=== PATIENT | male | born 1965 | race Two or more races ===

== ENCOUNTER 2017-09-20 17:58 | Inpatient (IN) | payer SELFPAY ==
[~2017-09-20] VITALS: Ht 167.6 cm; Wt 69.4 kg
[2017-09-20] MEDS: SODIUM CHLORIDE 0.9% 1,000 ML IV SCH
[2017-09-20] MEDS ORDERED: SODIUM CHLORIDE 0.9% 1,000 ML IV ONE (18:19)
[2017-09-20] MEDS ORDERED: ONDANSETRON HCL 4MG/2ML VIAL IV STA ×2 (18:19→19:35)
[2017-09-20 19:03] LABS: BASOPHILS % 0.2 % (0.0-2.0); HEMATOCRIT. 49.2 % (42.0-52.0); HEMOGLOBIN. 17.4 g/dL (14.0-18.0); LYMPHOCYTES % 11.4 % (20.0-50.0); MEAN CORPUSCULAR VOLUME 87.6 fL (80.0-94.0); MEAN PLATELET VOLUME 8.9 fl (7.4-10.4); MONOCYTES % 4.2 % (2.0-8.0); NEUTROPHILS % 84.2 % (40.0-76.0); PLATELET 252 x1000/uL (130-400); RED BLOOD CELL COUNT 5.61 mill/uL (4.7-6.1); RED CELL DISTRIBUTION WIDTH 13.2 % (11.6-14.6)
[2017-09-20 19:06] LABS: CHLORIDE 94 mEq/L (98-107)
[2017-09-20 19:07] LABS: PROTHROMBIN TIME 10.1 sec (9.4-11.6)
[2017-09-20 19:10] LABS: ETHANOL BLOOD 219 mg/dL
[2017-09-20 19:12] LABS: AMMONIA 33 uMol/L (<32)
[2017-09-20 19:21] LABS: CLARITY URINE CLEAR (CLEAR); COLOR URINE YELLOW (YELLOW); KETONES URINE TRACE (NEGATIVE); LEUKOCYTE ESTERASE URINE TRACE (NEGATIVE); NITRITE URINE NEGATIVE (NEGATIVE); OCCULT BLOOD URINE TRACE (NEGATIVE); PROTEIN URINE 2+ (NEGATIVE); SPECIFIC GRAVITY URINE 1.018 (1.005-1.030)
[2017-09-20] MEDS ORDERED: MORPHINE SULFATE 4 MG/ML CPJ (NOT FOR IM USE) IV STA (19:35)
[2017-09-20] MEDS ORDERED: METOCLOPRAMIDE HCL 10MG/2ML VIAL IV NR (22:57)
[2017-09-20] MEDS ORDERED: ACETAMINOPHEN 325MG TABLET PO PRN (23:15)
[2017-09-20] MEDS ORDERED: DIPHENHYDRAMINE 50MG/ML VIAL IV PRN (23:15)
[2017-09-20] MEDS ORDERED: MORPHINE SULFATE 4 MG/ML CPJ (NOT FOR IM USE) IV PRN (23:15)
[2017-09-20] MEDS ORDERED: ONDANSETRON HCL 4MG/2ML VIAL IV PRN (23:15)
[2017-09-20] MEDS ORDERED: MAGNESIUM/ALUMINUM HYDROXIDE/SIMETHICONE 30ML UDC PO PRN (23:15)
[2017-09-20 23:45] VITALS: BP 135/81
[2017-09-20] MEDS ORDERED: ONDANSETRON 4MG ODT PO PRN (23:45)
[2017-09-21 00:06] VITALS: BP 135/81
[2017-09-21] MEDS: ONDANSETRON HCL 4MG/2ML VIAL IV PRN ×2 (00:33→07:18)
[2017-09-21] MEDS: PANTOPRAZOLE SODIUM 40 MG/VIAL IV SCH ×3 (00:33→23:39)
[2017-09-21] MEDS: SODIUM CHLORIDE 0.9% 1,000 ML IV SCH ×4 (00:34→23:33)
[2017-09-21] MEDS ORDERED: MVI, ADULT NO.1 10 ML, FOLIC ACID 1 MG, THIAMINE HCL 100 MG in SODIUM CHLORIDE 0.9% 1,0... IV SCH ×4 (02:00)
[2017-09-21 04:00] VITALS: BP 142/85
[2017-09-21 05:45] LABS: BASOPHILS % 0.2 % (0.0-2.0); HEMATOCRIT. 43.4 % (42.0-52.0); HEMOGLOBIN. 15.3 g/dL (14.0-18.0); LYMPHOCYTES % 10.2 % (20.0-50.0); MEAN CORPUSCULAR HEMOGLOBIN 31.2 pg (28.0-32.0); MEAN CORPUSCULAR VOLUME 88.5 fL (80.0-94.0); MEAN PLATELET VOLUME 9.5 fl (7.4-10.4); MONOCYTES % 5.3 % (2.0-8.0); NEUTROPHILS % 84.3 % (40.0-76.0); PLATELET 194 x1000/uL (130-400); RED BLOOD CELL COUNT 4.91 mill/uL (4.7-6.1); RED CELL DISTRIBUTION WIDTH 13.4 % (11.6-14.6)
[2017-09-21] MEDS: METOCLOPRAMIDE HCL 10MG/2ML VIAL IV SCH ×4 (05:47→23:39)
[2017-09-21] MEDS ORDERED: METOCLOPRAMIDE HCL 10MG TABLET PO SCH ×2 (06:00)
[2017-09-21 06:15] LABS: CHLORIDE 98 mEq/L (98-107)
[2017-09-21 08:00] VITALS: BP 135/81
[2017-09-21] MEDS: CHLORDIAZEPOXIDE 25MG CAPSULE PO SCH ×2 (14:02→22:04)
[2017-09-21] MEDS: LORAZEPAM 2MG/ML CPJ IV PRN (14:03)
[2017-09-21 15:45] LABS: OPIATES URINE SCREEN PRESUMTIVE POSITIVE (NEGATIVE)
[2017-09-21 15:46] LABS: *AMPHETAMINES SCREEN URINE NEGATIVE (NEGATIVE); *BARBITURATES SCREEN URINE NEGATIVE (NEGATIVE); *BENZODIAZEPINES SCREEN URINE NEGATIVE (NEGATIVE); *COCAINE SCREEN URINE NEGATIVE (NEGATIVE); CANNABINOID URINE SCREEN PRESUMTIVE POSITIVE (NEGATIVE); METHADONE URINE SCREEN NEGATIVE (NEGATIVE); PHENCYCLIDINE URINE SCREEN NEGATIVE (NEGATIVE)
[2017-09-21 16:00] VITALS: BP 140/87
[2017-09-21 20:05] VITALS: BP 142/90
[2017-09-21 23:53] VITALS: BP 133/87
[2017-09-22 03:56] VITALS: BP 143/90
[2017-09-22] MEDS: METOCLOPRAMIDE HCL 10MG/2ML VIAL IV SCH ×2 (06:08→12:06)
[2017-09-22 06:43] LABS: BASOPHILS % 0.7 % (0.0-2.0); EOSINOPHILS % 2.5 % (0.0-5.0); HEMATOCRIT. 44.3 % (42.0-52.0); LYMPHOCYTES % 20.3 % (20.0-50.0); MEAN CORPUSCULAR HEMOGLOBIN 30.6 pg (28.0-32.0); MEAN CORPUSCULAR VOLUME 90.5 fL (80.0-94.0); MEAN PLATELET VOLUME 9.1 fl (7.4-10.4); MONOCYTES % 6.8 % (2.0-8.0); NEUTROPHILS % 69.7 % (40.0-76.0); PLATELET 165 x1000/uL (130-400); RED CELL DISTRIBUTION WIDTH 13.7 % (11.6-14.6)
[2017-09-22] MEDS: CHLORDIAZEPOXIDE 25MG CAPSULE PO SCH ×3 (06:50→21:40)
[2017-09-22 06:51] LABS: CHLORIDE 103 mEq/L (98-107)
[2017-09-22] MEDS: SODIUM CHLORIDE 0.9% 1,000 ML IV SCH (06:54)
[2017-09-22 07:06] LABS: PHOSPHORUS 2.5 mg/dL (2.5-4.9)
[2017-09-22] MEDS ORDERED: POTASSIUM CHLORIDE 20MEQ TABLET SR PO SCH (07:45)
[2017-09-22 07:55] VITALS: BP 148/88
[2017-09-22] MEDS: PANTOPRAZOLE SODIUM 40 MG/VIAL IV SCH (10:24)
[2017-09-22 12:00] VITALS: BP 156/94
[2017-09-22] MEDS ORDERED: TEMAZEPAM 15MG CAPSULE PO PRN (14:30)
[2017-09-22] MEDS ORDERED: POTASSIUM CHLORIDE 20MEQ TABLET SR PO NR (14:30)
[2017-09-22] MEDS ORDERED: MECLIZINE 25MG TABLET PO PRN (14:30)
[2017-09-22 15:48] VITALS: BP 148/90
[2017-09-22] MEDS: OMEPRAZOLE 20MG CAPSULE EXTENDED RELEASE PO SCH (16:09)
[2017-09-22 20:00] VITALS: BP 145/97
[2017-09-22 20:38] VITALS: BP 145/97
[2017-09-23] VITALS (7 sets, daily range): BP systolic 108–145; BP diastolic 67–102
[2017-09-23] MEDS: CHLORDIAZEPOXIDE 25MG CAPSULE PO SCH ×2 (05:10→13:45)
[2017-09-23 06:48] LABS: BASOPHILS % 0.7 % (0.0-2.0); HEMOGLOBIN. 16.1 g/dL (14.0-18.0); LYMPHOCYTES % 26.1 % (20.0-50.0); MEAN CORPUSCULAR HEMOGLOBIN 31.5 pg (28.0-32.0); MEAN CORPUSCULAR VOLUME 89.9 fL (80.0-94.0); MEAN PLATELET VOLUME 9.4 fl (7.4-10.4); MONOCYTES % 6.9 % (2.0-8.0); NEUTROPHILS % 63.3 % (40.0-76.0); PLATELET 170 x1000/uL (130-400); RED BLOOD CELL COUNT 5.11 mill/uL (4.7-6.1); RED CELL DISTRIBUTION WIDTH 13.2 % (11.6-14.6)
[2017-09-23 08:57] LABS: CHLORIDE 103 mEq/L (98-107)
[2017-09-23] MEDS ORDERED: THIAMINE HCL 100MG TABLET PO SCH (09:00)
[2017-09-23 09:03] LABS: PHOSPHORUS 3.7 mg/dL (2.5-4.9)
[2017-09-23] MEDS: OMEPRAZOLE 20MG CAPSULE EXTENDED RELEASE PO SCH ×2 (09:27→17:38)
[2017-09-23] MEDS: LORAZEPAM 2MG/ML CPJ IV PRN (09:27)
== END 2017-09-23 18:35 | disposition home or self-care (01) | DRG 280 ==
LOC: ER 17:58 → 6WST 20:57 → EDBEDREQTM 20:59 → EDBEDREQ 20:59 → ENRESERV 21:30 → 6EST 09-23 12:33
PROVIDERS: ADMIT Internal Medicine; ATTEND Internal Medicine
DX: K70.30 Alcoholic cirrhosis of liver without ascites (principal); K22.6 Gastro-esophageal laceration-hemorrhage syndrome; K29.71 Gastritis, unspecified, with bleeding; F10.239 Alcohol dependence with withdrawal, unspecified; K20.9 Esophagitis, unspecified
CPT/HCPCS: 36415; 71045; 74176; 80048; 80053; 80305; 81003; 82140; 83735; 84100; 85025; 85610; 86850; 86900; 93005; 93970; 96361; 96374; 96375; 96376; 97162; 99291; C9113; G0482; J2060; J2270; J2405; J2765; J3411; J3490; J7030